=== PATIENT | male | born 1975 | race Caucasian/White ===

== ENCOUNTER 2020-05-17 14:01 | Emergency (ER) | payer OTHER ==
[~2020-05-17] VITALS: Ht 172.7 cm; Wt 99.3 kg
[~2020-05-17 14:01] MED LIST: ATORVASTATIN CA80 MG PO; CHILDREN'S ASPI81 M1 PO; CLONAZEPAM 0.50.5 M1 PO; ESKALITH CR450 MG PO; LEVEMIR SUBQ; LITHIUM CARBON300 M3 PO; METFORMIN HCL500 MG PO; OLANZAPINE15 M1 PO; PRAZOSIN HCL5 MG PO; PRINIVIL20 MG PO; RESTORIL30 MG PO; TRAZODONE HCL50 MG PO; WELLBUTRIN XL150 MG PO
[2020-05-17 16:18] LABS: URINE BILIRUBIN NEGATIVE (Negative); URINE BLOOD NEGATIVE (Negative); URINE CLARITY CLEAR; URINE COLOR YELLOW; URINE GLUCOSE-RANDOM* 3+ (Negative); URINE KETONES 1+ (Negative); URINE LEUKOCYTES-REFLEX NEGATIVE (Negative); URINE NITRITE-REFLEX NEGATIVE (Negative); URINE PROTEIN (DIPSTICK) NEGATIVE (Negative); URINE UROBILINOGEN 0.2 E.U./dl (0.2-1.0)
[2020-05-17 16:19] LABS: HEMOGLOBIN 18.9 gm/dL (14.0-18.0); MCH 29.5 pg (26.0-34.0); MCHC 34.3 g/dL (28.0-37.0); PLATELET COUNT 232 thou/uL (150-400); RBC 6.39 mil/uL (4.50-6.00); RDW 18.2 % (10.5-14.5); WBC 8.2 thou/uL (4.0-11.0)
[2020-05-17 16:26] LABS: CALCIUM 9.3 mg/dL (8.5-10.1); CREATININE 0.7 mg/dL (0.7-1.3); POTASSIUM 3.8 mmol/L (3.5-5.1)
[2020-05-17 16:31] LABS: ALBUMIN 3.5 g/dL (3.4-5.0); TOTAL BILIRUBIN 0.8 mg/dL (0.2-1.0)
[2020-05-17 17:31] LABS: ABSOLUTE NEUTROPHILS 5.2 thou/uL (1.4-8.2); ANISOCYTOSIS 1+; POLYCHROMASIA OCCASIONAL
[2020-05-17] MEDS ORDERED: FLAGYL500 M1 PO (17:44)
[2020-05-17] MEDS ORDERED: ONDANSETRON HCL4 M2 PO (17:44)
[2020-05-17 17:56] VITALS: BP 142/81
== END 2020-05-17 17:58 | disposition home or self-care (01) ==
LOC: ER 14:01
PROVIDERS: Physician Assistant
DX: R19.7 Diarrhea, unspecified (principal); F41.9 Anxiety disorder, unspecified; R11.0 Nausea; R10.33 Periumbilical pain; E11.9 Type 2 diabetes mellitus without complications; F32.9 Major depressive disorder, single episode, unspecified; F17.210 Nicotine dependence, cigarettes, uncomplicated; Z79.899 Other long term (current) drug therapy; Z79.4 Long term (current) use of insulin; Z79.82 Long term (current) use of aspirin